=== PATIENT | male | born 1955 | race Caucasian/White ===

== ENCOUNTER 2017-01-15 09:31 | Inpatient (IN) | payer OTHER ==
[~2017-01-15] VITALS: Ht 190.5 cm; Wt 102.5 kg
[2017-01-15] VITALS (15 sets, daily range): BP systolic 107–150; BP diastolic 70–91
[~2017-01-15 09:31] MED LIST: LEVOTHYROXIN0.175 MG PO
[2017-01-15] MEDS ORDERED: LANSOPRAZOLE15 MG PO (11:10)
[2017-01-15 11:40] LABS: HEMOGLOBIN 15.3 g/dL (14.1-18.0); LYMPH # 1.5 K/mm3 (0.7-4.5); LYMPH % 17.6 % (10-50)
--- NOTE | 2017-01-15 12:28 | CONSULT NOTE ---
Consultation findings: Referring physician: Dr. Abbott Date of examination: 01/15/17 Time of examination: 1200 Exam findings: 61 yo male known to me from TKA in 2011 R knee. Presents with several day hx pustules both LE. States he believes he scratched skin to aggressively when itching. Has been on p.o. Abx with no improvement. No other lesions except legs. Denies knee pain. Alert and oriented. Multiple areas of cellulitis and induration/fluctuance both legs. Moves knees w/o pain. No evident knee joint erffussion either side. Compartments soft. pedal pulses and sensation intact B LE. Impression: cellulitis both lower extremities with purulent discharge per history Recommendations: I&D and aggressive Abx management to protect TKA on right. at [phone]
--- NOTE | 2017-01-15 14:15 | HISTORY AND PHYSICAL REPORT ---
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 He was seen in the office 01/11/17 with cellulitis of the LLE and started on Bactrim. The rash intensified and he again visited the office for further TX. With this evaluation he was found to have multiple areas of cellulitis and induration on both legs. Thus he was admitted with an Orthopedic referral. Dr. Lee saw him and noted no evident knee joint erffussion on either side. Compartments soft. pedal pulses and sensation intact B LE with recommendation for I&D and aggressive Abx management to protect TKA on right. At time of this exam patient is getting ready to go to surgery. Past Medical History: Medical History: CAD? No Angina: No [place]: No Hypertension? No Hyperlipidemia? No CHF? No DVT? No PE? No COPD? No Asthma? No Anemia? No GERD? No Gastric ulcers? No GI Bleed? No Hernia? No Thyroid Problems? Yes Hypothyroidism? Yes CVA? No Seizures? No Diabetes? No Renal Insuffiency? No UTI? No Stones? No BPH? No GB Disease: No Nephritic Syndrome? No Asplenia? No Hepatitis? No Sickle Cell Disease? No Arthritis? No Migraines? No Cataracts? Yes Glaucoma? No MRSA? No HIV? No TB? No Anxiety? No Depression? No Cancer? Yes Site: [facility] More? No Surgical history: Previous Surgery?Y THYROID X 2 Cataract(s) LASIK X 2 RIGHT KNEE REPLACED Medications: Reported Medications Lansoprazole 20 MG PO PRN PRN ACID REFLUX Levothyroxine Sodium (Levothyroxine 0.175MG) 0.175 MG PO DAILY Allergies: Coded Allergies: No Known Allergies (01/15/17) Family History: Family history: Postive for: HTN, cancer. Negative for: CAD, DM. Social History: Smoking Hx Tobacco: No Alcohol: Alcohol: No Hx of Drug Use: Drug Use? No Patien't marital status is: Patient's support system is: excellent Review of Systems: Constitutional No: fatigue. ENT No: ear ache, sore throat. Cardiovascular Positive for: edema. No: PND, chest pain, palpitations. Respiratory No: shortness of air, non-productive, productive cough (sputum). GI No: GERD, abdominal pain, constipation, diarrhea, melena, nausea. (male) No: frequency, hematuria. Neurological No: dizziness, headache, seizure, syncope. Musculoskeletal Positive for: extremity pain (bilateral leg pain). Physical Exam: Vital signs: 1ST Vital Signs Result Date Time Pulse Ox 99 01/15 104 O2 Delivery ROOM AIR 01/15 1041 B/P 150/82 01/15 104 Temp 98.3 01/15 104 Pulse 71 01/15 104 Resp 20 01/15 104 Exam: General appearance: alert, no acute distress, well-developed, well-nourished Eyes: anicteric ENT: mucous membranes moist Neck: full range of motion, supple, lymphadenopathy (absent) Extremities: bilateral legs with multiple indurated areas with celluitis Lab data: Labs: Laboratory Tests 01/15/171127: Sodium 139, Potassium 4.2, Chloride 104, Carbon Dioxide 26, BUN 16, Creatinine 1.1, Estimated Creat Clear 105, Estimated GFR (MDRD) 69, Glucose 93, Calcium 8.9 , Total Bilirubin 0.4, AST 20, ALT 65, Alkaline Phosphatase 95, Total Protein 6.9, Albumin 3.0 L, Globulin 3.9 H, Albumin/Globulin Ratio 0.8 L, WBC 8.5, RBC 5.16, Hgb 15.3, Hct 45.9, MCV 89.1, RDW 13.1, Plt Count 189, MPV 6.6 L, Gran % 72.9, Gran # 6.2, Lymphocytes % 17.6, Monocytes % 6.1, Eosinophils % 3.1, Basophils % 0.3, Lymphocytes # 1.5, Monocytes # 0.5, Eosinophils # 0.3, Basophils # 0.0, PUBS MCHC 33.3, MCH 29.7 Microbiology 01/15 1212 BLOOD: Anaerobic Blood Culture - RECD 01/15 1212 BLOOD: Aerobic Blood Culture - RECD 01/15 1128 LEG: Wound Culture - RECD 01/15 1128 BLOOD: Anaerobic Blood Culture - RECD 01/15 1128 BLOOD: Aerobic Blood Culture - RECD Diagnosis(es): 1. Cellulitis and abscess of lower extremity Status: Acute Assessment/Plan bilateral legs 2. History of malignant neoplasm of thyroid Status: Chronic Plan: to surgery for I&D; IV ABX (Marycruz Kaminski APRN) Date of admission: 01/15/17 Chief complaint: Cellulitis and abscess Past Medical History: Medical History: Thyroid Problems? No (post surgical) Cancer? Yes Site: thyroid Additional hx: Follicular thyroid carcinoma Surgical history: Previous Surgery?Y Total thyroidectomy Cataract(s) LASIK X 2 RIGHT KNEE REPLACED Family History: Additional family history: Mother with valvular heart disease and father with dementia Physical Exam: Exam: Skin: large area of abscess on left lateral lowerlegs with scant drainage. Multiple pustular lesions scattered on both legs. Diagnosis(es): 1. Cellulitis and abscess of lower extremity Status: Acute 2. History of malignant neoplasm of thyroid Status: Chronic Plan: Admit for IV Vancomycin and surgical consultation for I&D. (Amanda Abbott MD) at 1414 at [phone]
--- NOTE | 2017-01-15 15:08 | CONSULT NOTE ---
Pharmacokinetic Consult Date of consult: 01/15/17 Time of consult: 1506 Referring provider: DR. PEREZ Reason for consult: VANCOMYCIN DOSING Allergies: Coded Allergies: No Known Allergies (01/15/17) Home Medications: Reported Medications Lansoprazole 20 MG PO PRN PRN ACID REFLUX Levothyroxine Sodium (Levothyroxine 0.175MG) 0.175 MG PO DAILY Height (feet): 6 Height (inches): 3.00 Medical History: CAD? No Angina: No [place]: No Hypertension? No Hyperlipidemia? No CHF? No DVT? No PE? No COPD? No Asthma? No Anemia? No GERD? No Gastric ulcers? No GI Bleed? No Hernia? No Thyroid Problems? Yes Hypothyroidism? Yes CVA? No Seizures? No Diabetes? No Renal Insuffiency? No UTI? No Stones? No BPH? No GB Disease: No Nephritic Syndrome? No Asplenia? No Hepatitis? No Sickle Cell Disease? No Arthritis? No Migraines? No Cataracts? Yes Glaucoma? No MRSA? No HIV? No TB? No Anxiety? No Depression? No Cancer? Yes Site: [facility]? No Labs: Laboratory Tests 01/15/171127: Sodium 139, Potassium 4.2, Chloride 104, Carbon Dioxide 26, BUN 16, Creatinine 1.1, Estimated Creat Clear 105, Estimated GFR (MDRD) 69, Glucose 93, Calcium 8.9 , Total Bilirubin 0.4, AST 20, ALT 65, Alkaline Phosphatase 95, Total Protein 6.9, Albumin 3.0 L, Globulin 3.9 H, Albumin/Globulin Ratio 0.8 L, WBC 8.5, RBC 5.16, Hgb 15.3, Hct 45.9, MCV 89.1, RDW 13.1, Plt Count 189, MPV 6.6 L, Gran % 72.9, Gran # 6.2, Lymphocytes % 17.6, Monocytes % 6.1, Eosinophils % 3.1, Basophils % 0.3, Lymphocytes # 1.5, Monocytes # 0.5, Eosinophils # 0.3, Basophils # 0.0, PUBS MCHC 33.3, MCH 29.7 Microbiology 01/15 1212 BLOOD: Anaerobic Blood Culture - RECD 01/15 1212 BLOOD: Aerobic Blood Culture - RECD 01/15 1128 LEG: Wound Culture - RECD 02/27 1128 BLOOD: Anaerobic Blood Culture - RECD 01/15 1128 BLOOD: Aerobic Blood Culture - RECD Problem List: 1. Cellulitis and abscess of lower extremity Acute Plan: BASED ON PATIENT FACTORS, RECOMMEND STARTING WITH VANCOMYCIN 2000 MG Q12H AT THIS TIME. PHARMACY WILL FOLLOW DAILY AND ADJUST APPROPRIATE. DANIELLA LINDA, PHARMD at [phone]
[2017-01-16] VITALS (8 sets, daily range): BP systolic 116–146; BP diastolic 62–74
--- NOTE | 2017-01-16 07:39 | PHARMACY CLINIC NOTE ---
Patient Demographics Patient Demographics Admission date: 01/15/17 Date: 01/16/17 Time: 0737 Allergies Coded Allergies: No Known Allergies (01/15/17) HEIGHT- FT: 6 IN: 3.00 K.513 VTE General Information Labs: Laboratory Tests 01/15 1128 Hematology Hgb (14.1 - 18.0 g/dL) 15.3 Hct (42.0 - 52.0 %) 45.9 Plt Count (142 - 424 K/mm3) 189 Disclaimer The following section includes nursing documentation that has been pulled in for pharmacy review. Patient's VTE score: 1 Patient's VTE Risk: VERY LOW RISK Clinical trial participant? No VTE prophylaxis [facility] 0371 VTE prophylaxis ordered? Yes Type of prophylaxis/treatment: Lovenox at 0738
--- NOTE | 2017-01-16 07:39 | PHARMACY CLINIC NOTE ---
Patient Demographics Patient Demographics Admission date: 01/15/17 Date: 01/16/17 Time: 0737 Allergies Coded Allergies: No Known Allergies (01/15/17) HEIGHT- FT: 6 IN: 3.00 K.513 VTE General Information Labs: Laboratory Tests 01/15 1128 Hematology Hgb (14.1 - 18.0 g/dL) 15.3 Hct (42.0 - 52.0 %) 45.9 Plt Count (142 - 424 K/mm3) 189 Disclaimer The following section includes nursing documentation that has been pulled in for pharmacy review. Patient's VTE score: 1 Patient's VTE Risk: VERY LOW RISK Clinical trial participant? No VTE prophylaxis [facility] 0371 VTE prophylaxis ordered? Yes Type of prophylaxis/treatment: Lovenox at 0738
--- NOTE | 2017-01-16 08:27 | ACUTE CARE PROGRESS NOTE (QUA) ---
Progress Notes Subjective Date 01/16/17 Time 0740 Note slept at intervals; legs burn but did not ask for any pain med. eating without problems; voiding QS Objective Findings Laboratory Tests 01/15/17 1128: Sodium 139, Potassium 4.2, Chloride 104, Carbon Dioxide 26, BUN 16, Creatinine 1.1, Estimated Creat Clear 105, Estimated GFR (MDRD) 69, Glucose 93, Calcium 8.9 , Total Bilirubin 0.4, AST 20, ALT 65, Alkaline Phosphatase 95, Total Protein 6.9, Albumin 3.0 L, Globulin 3.9 H, Albumin/Globulin Ratio 0.8 L, WBC 8.5, RBC 5.16, Hgb 15.3, Hct 45.9, MCV 89.1, RDW 13.1, Plt Count 189, MPV 6.6 L, Gran % 72.9, Gran # 6.2, Lymphocytes % 17.6, Monocytes % 6.1, Eosinophils % 3.1, Basophils % 0.3, Lymphocytes # 1.5, Monocytes # 0.5, Eosinophils # 0.3, Basophils # 0.0, PUBS MCHC 33.3, MCH 29.7 Microbiology 01/15 1440 LEG: Antimicrobic Susceptibility - RECD 01/15 1440 LEG: Anaerobic Culture Result 4 - RECD 01/15 1440 LEG: Anaerobic Culture Result 3 - RECD 01/15 1440 LEG: Anaerobic Culture Result 2 - RECD 01/15 1440 LEG: Anaerobic Culture Result 1 - RECD 01/15 1440 LEG: Anaerobic Culture - RECD 01/15 1440 LEG: Wound Culture - RECD 01/15 1440 WOUND: Wound Culture - RECD 01/15 1440 LEG: Antimicrobic Susceptibility - RECD 01/15 1440 LEG: Anaerobic Culture Result 4 - RECD 01/15 1440 LEG: Anaerobic Culture Result 3 - RECD 01/15 1440 LEG: Anaerobic Culture Result 2 - RECD 01/15 1440 LEG: Anaerobic Culture Result 1 - RECD 01/15 1440 LEG: Anaerobic Culture - RECD 01/15 1212 BLOOD: Anaerobic Blood Culture - RECD 01/15 1212 BLOOD: Aerobic Blood Culture - RECD 01/15 1128 LEG: Wound Culture - RECD 01/15 1128 BLOOD: Anaerobic Blood Culture - RECD 01/15 1128 BLOOD: Aerobic Blood Culture - RECD Vital Signs Date Time Temp Pulse Resp B/P Pulse O2 O2 Flow FiO2 Ox Delivery Rate 01/16 0747 97.4 81 18 146/74 98 ROOM AIR 01/16 0347 98.8 65 16 116/62 97 ROOM AIR 01/16 0018 99.5 69 16 134/68 95 ROOM AIR 01/15 2225 98.7 65 20 107/70 96 01/15 2125 98.7 67 20 110/72 95 01/15 2025 98.7 65 20 124/78 97 01/15 2000 98.3 68 20 147/83 97 01/15 1925 98.7 70 20 135/78 97 01/15 1844 98.3 68 20 147/83 97 01/15 1755 98.3 78 20 131/88 96 01/15 1725 98.3 68 20 137/80 97 01/15 1655 98.3 65 20 122/72 96 01/15 1625 98.0 65 20 136/87 97 01/15 1610 97.8 63 20 132/79 96 01/15 1555 97.6 66 20 146/91 98 01/15 1540 97.8 67 20 137/91 99 01/15 1540 97.8 67 20 137/91 99 01/15 1538 97.8 73 18 140/83 97 ROOM AIR 01/15 1528 71 18 144/95 97 ROOM AIR 01/15 1522 97.6 01/15 1518 72 18 137/66 98 ROOM AIR 01/15 1513 71 20 150/82 99 01/15 1508 97.6 75 16 153/92 96 ROOM AIR 01/15 1051 98.3 71 20 150/82 99 ROOM AIR 01/15 1041 71 01/15 1041 98.3 71 20 150/82 01/15 1041 99 ROOM AIR Current Medications Sodium Chloride 1,000 ML .Q25H IV Enoxaparin Sodium 40 MG DAILY SC Levothyroxine Sodium 0.175 MG DAILY PO (UNV) Vancomycin HCl 2,000 MG Q12H IV (CKD) Sodium Chloride 250 ML Desflurane 0 .STK-MED ONE .ROUTE (DC) Acetaminophen 650 MG Q4HP PRN PO Acetaminophen/Hydrocodone Bitart 1 TAB Q6HP PRN PO Influenza Virus Vaccine Quadrival 0.5 ML PRN PRN IM Nicotine 21 MG DAILYP PRN TD Sodium Chloride 10 ML PRN PRN IV Cefazolin Sodium 0 .STK-MED ONE .ROUTE (DC) Lidocaine HCl 0 .STK-MED ONE IJ (DC) Ondansetron HCl 0 .STK-MED ONE .ROUTE (DC) Propofol 0 .STK-MED ONE IV (DC) Fentanyl Citrate 0 .STK-MED ONE IV (DC) Midazolam HCl 0 .STK-MED ONE .ROUTE (DC) Lactated Ringer's 1,000 ML .STK-MED ONE IV (DC) Sodium Chloride 1,000 ML .STK-MED ONE IV (DC) Sodium Chloride 10 ML PRN PRN IV (DC) Acetaminophen 650 MG Q4HP PRN PO (DC) Acetaminophen/Hydrocodone Bitart 1 TAB Q6HP PRN PO (DC) Influenza Virus Vaccine Quadrival 0.5 ML PRN PRN IM (DC) Nicotine 21 MG DAILYP PRN TD (DC) Sodium Chloride 1,000 ML .Q25H IV Enoxaparin Sodium 40 MG DAILY SC (DC) 01/15 1500 01/15 2300 01/16 0700 Intake Total 1022 465 Output Total 0 Balance 1022 465 Intake, IV 432 465 Intake, Oral 590 Intake, Tube 0 Irrigant Output, 0 Emesis Output, 0 Estimated Blood Loss Output, Other 0 Output, Urine 0 Patient 226 lb Weight Last VS-Temp:97.4 B/P:146/74 Pulse:81 Resp:18 SaO2:98 ROOM AIR Last weight lbs:226 oz:0 K.513 Method:Floor Scales Exam General appearance: alert, active, no acute distress, well-developed, well- nourished Cardiovascular: regular rate & rhythm Respiratory: clear to auscultation (bilat anterior and posterior) ABD: soft, no tenderness, bowel sounds present Extremities: edema of left ankle; dressings on left lower leg and 2 dressings on right leg Neuro: alert, oriented Assessment/Plan Problem List 1. Cellulitis and abscess of lower extremity Status: Acute 2. History of malignant neoplasm of thyroid Status: Chronic Patient condition Improving Plan: As per Dr. Lee; continue with ABX, dressings as per Dr. Lee This inpt stay is expected to cross 2 MNs from start of care Yes (Marycruz Kaminski APRN) Subjective Date 01/16/17 Time 0836 Assessment/Plan Problem List 1. Cellulitis and abscess of lower extremity Status: Acute 2. History of malignant neoplasm of thyroid Status: Chronic Plan: Pt seen and examined. Concur with above. Awaiting cultures. (Amanda Abbott MD) at [phone] at 0847
--- NOTE | 2017-01-16 11:53 | ACUTE CARE PROGRESS NOTE ---
Progress note Date: 01/16/17 Assessment: Patient is postop day number 1 status post I and D of multiple abscess formations bilateral lower extremities. He is afebrile and vital signs are stable. White count 8500. Interestingly, the patient's albumin is low at 3.0. Cultures and sensitivities are pending Patient is awake and alert no apparent distress. Clinically some of the lesions which were smaller and not fluctuant appeared to have improved somewhat since initiation of vancomycin. Patient is sensate to light touch bilaterally pedal pulses intact. Moves knees freely without pain. No evident effusion and no evident periprosthetic infection of the RIGHT knee Impression: 1. Cellulitis and abscess of lower extremity Status: Acute 2. History of malignant neoplasm of thyroid Status: Chronic Plan: Recommend continuing vancomycin pending cultures and sensitivities. We will request nursing staff change dressings today. The patient is at high risk for seeding of the RIGHT knee and developing a periprosthetic joint infection. We'll obtain a C-reactive protein and ESR to establish a baseline and help track response to antibiotics. at 1158
--- NOTE | 2017-01-16 16:15 | CONSULT NOTE ---
Pharmacokinetic Consult Date of consult: 01/16/17 Time of consult: 1612 Referring provider: DR. PEREZ Reason for consult: VANCOMYCIN TROUGH LEVEL Allergies: Coded Allergies: No Known Allergies (01/15/17) Home Medications: Reported Medications Lansoprazole 20 MG PO PRN PRN ACID REFLUX Levothyroxine Sodium (Levothyroxine 0.175MG) 0.175 MG PO DAILY Height (feet): 6 Height (inches): 3.00 Medical History: CAD? No Angina: No [place]: No Hypertension? No Hyperlipidemia? No CHF? No DVT? No PE? No COPD? No Asthma? No Anemia? No GERD? No Gastric ulcers? No GI Bleed? No Hernia? No Thyroid Problems? No (post surgical) Hypothyroidism? Yes CVA? No Seizures? No Diabetes? No Renal Insuffiency? No UTI? No Stones? No BPH? No GB Disease: No Nephritic Syndrome? No Asplenia? No Hepatitis? No Sickle Cell Disease? No Arthritis? No Migraines? No Cataracts? Yes Glaucoma? No MRSA? No HIV? No TB? No Anxiety? No Depression? No Cancer? Yes Site: thyroid More? No Additional hx: Follicular thyroid carcinoma Labs: Laboratory Tests 01/16/17 1440: Creatinine 1.2, Estimated Creat Clear 96, Estimated GFR (MDRD) 62, ESR 80 H, Vancomycin Trough 10.0 Problem List: 1. Cellulitis and abscess of lower extremity Acute Plan: BASED ON PATIENT VANCOMYCIN TROUGH LEVEL OF 10.0 MCG/ML, RECOMMENDED PATIENT CONTINUE WITH CURRENT DOSE OF VANCOMYCIN 2 GM Q12H AT THIS TIME. PHARMACY WILL FOLLOW DAILY AND ADJUST APPROPRIATE. DANIELLA LINDA, PHARMD at [phone]
[2017-01-17 03:50] VITALS: BP 117/76
[2017-01-17 07:53] VITALS: BP 128/72
--- NOTE | 2017-01-17 08:15 | ACUTE CARE PROGRESS NOTE (QUA) ---
Progress Notes Subjective Date 01/17/17 Time 0750 Note Slept much better last night; pain in legs with dressing changes; eating without problems; denies CP and SOB; ambulates to the bathroom; dressing changed this AM ; drains are out Objective Findings Laboratory Tests 01/16/17 1440: Creatinine 1.2, Estimated Creat Clear 96, Estimated GFR (MDRD) 62, ESR 80 H, Vancomycin Trough 10.0 Vital Signs Date Time Temp Pulse Resp B/P Pulse O2 O2 Flow FiO2 Ox Delivery Rate 01/17 075 98.1 72 20 128/72 98 ROOM AIR 01/17 0350 98.3 61 16 117/76 95 ROOM AIR 01/16 2140 98.1 67 18 143/72 98 01/16 2013 98.1 67 18 143/72 98 ROOM AIR 01/16 1542 98.3 64 18 128/72 97 ROOM AIR 01/16 1453 18 01/16 1144 97.6 69 18 134/71 98 ROOM AIR Current Medications Acetaminophen/Hydrocodone Bitart 0 .STK-MED ONE PO (DC) Sodium Chloride 1,000 ML .Q25H IV Enoxaparin Sodium 40 MG DAILY SC Levothyroxine Sodium 0.175 MG DAILY PO Vancomycin HCl 2,000 MG Q12H IV (CKD) Sodium Chloride 250 ML Acetaminophen 650 MG Q4HP PRN PO Acetaminophen/Hydrocodone Bitart 1 TAB Q6HP PRN PO Influenza Virus Vaccine Quadrival 0.5 ML PRN PRN IM Nicotine 21 MG DAILYP PRN TD Sodium Chloride 10 ML PRN PRN IV Sodium Chloride 1,000 ML .Q25H IV (DC) 01/16 1500 01/16 2300 01/17 0700 Intake Total 600 692 Output Total Balance 600 692 Intake, IV 272 Intake, Oral 600 420 Last VS-Temp:98.1 B/P:128/72 Pulse:72 Resp:20 SaO2:98 ROOM AIR Last weight lbs:226 oz:0 K.513 Method:Floor Scales Exam General appearance: alert, active, no acute distress, well-developed, well- nourished Cardiovascular: regular rate & rhythm Respiratory: clear to auscultation (bilat anterior and posterior) ABD: non-distended, soft, no tenderness, bowel sounds present Extremities: left leg with edema; dressings on right and left leg are clean and dry Neuro: alert, oriented Assessment/Plan Problem List 1. Cellulitis and abscess of lower extremity Status: Acute 2. History of malignant neoplasm of thyroid Status: Chronic Patient condition Improving Plan: continue current care, as per Dr. Lee This inpt stay is expected to cross 2 MNs from start of care Yes (Marycruz Kaminski APRN) Subjective Date 01/17/17 Time 0926 Assessment/Plan Problem List 1. Cellulitis and abscess of lower extremity Status: Acute 2. History of malignant neoplasm of thyroid Status: Chronic Plan: As above. Awaiting cultures. (Amanda Abbott MD) at 0814 at 0926
[2017-01-17 09:00] VITALS: BP 128/72
[2017-01-17 15:47] VITALS: BP 128/88
[2017-01-17 19:30] VITALS: BP 128/65
[2017-01-17 19:44] VITALS: BP 128/65
[2017-01-18 04:00] VITALS: BP 135/73
--- NOTE | 2017-01-18 08:11 | ACUTE CARE PROGRESS NOTE (QUA) ---
Progress Notes Subjective Date 01/18/17 Time 0807 Note Patient states he is feeling better today. He did eat most of his breakfast and slept well last night. His pain is improved. Dr. Hodges is following and changed his dressing yesterday. Objective Findings Last VS-Temp:98.0 B/P:135/73 Pulse:59 Resp:20 SaO2:98 ROOM AIR Last weight lbs:226 oz:0 K.513 Method:Floor Scales Exam General appearance: alert, awake, no acute distress Cardiovascular: regular rate & rhythm Respiratory: clear to auscultation ABD: non-distended, normal bowel sounds, no rebound, soft, no tenderness, no guarding Extremities: dressings in place on bilateral legs with no drainage Reviewed: Wound cx - MRSA positive Assessment/Plan Problem List 1. Cellulitis and abscess of lower extremity Status: Acute 2. History of malignant neoplasm of thyroid Status: Chronic Plan: Dr. Lee to follow. Will continue IV abx. This inpt stay is expected to cross 2 MNs from start of care Yes (Katina Rodriguez) Subjective Date 01/18/17 Time 0819 Assessment/Plan Problem List 1. Cellulitis and abscess of lower extremity Status: Acute 2. History of malignant neoplasm of thyroid Status: Chronic Plan: No new problems. Surgical cultures still pending. (Amanda Abbott MD) Antibiotic Stewardship (2) Current Culture Results Microbiology 01/15 1440 LEG: Antimicrobic Susceptibility - RECD 01/15 1440 LEG: Anaerobic Culture Result 4 - RECD 01/15 1440 LEG: Anaerobic Culture Result 3 - RECD 01/15 1440 LEG: Anaerobic Culture Result 2 - RECD 01/15 1440 LEG: Anaerobic Culture Result 1 - RECD 01/15 1440 LEG: Anaerobic Culture - RECD 01/15 1440 LEG: Wound Culture - COMP STAPHYLOCOCCUS AUREUS 01/15 1440 WOUND: Wound Culture - COMP STAPHYLOCOCCUS AUREUS 01/15 1212 BLOOD: Anaerobic Blood Culture - RECD 01/15 1212 BLOOD: Aerobic Blood Culture - RECD Infxn that will respond? Yes Right drug,dose,and route? Yes More targeted antbx? No How long atbx needed? 10 (Amanda Abbott MD) at 0810 at 0820
[2017-01-18 08:13] VITALS: BP 133/73
--- NOTE | 2017-01-18 13:23 | ACUTE CARE PROGRESS NOTE ---
See Addendum Progress note Date: 01/18/17 Assessment: Is awake, alert, no apparent distress. He remains afebrile and vital signs are stable. C reactive protein 7.5 ESR 80. Cultures and sensitivities from surgical debridement indicate sensitivity to vancomycin and rifampin. Dressings are changed. All sites show improvement. The more proximal one on the lateral aspect of the LEFT lower leg still shows significant induration but I do not feel true fluctuance here. No evidence of joint effusion and there does not appear to be clinical evidence of a periprosthetic joint infection on the RIGHT knee at the site of his prior TKA. Impression: 1. Cellulitis and abscess of lower extremity Status: Acute 2. History of malignant neoplasm of thyroid Status: Chronic Plan: I've emailed Dr. Fam Monae at the [facility] Department of infectious disease regarding some questions related to duration of antibiotic therapy and possible changed to daptomycin while at the same time providing optimal protection for his total knee replacement. In the meantime, RIGHT rifampin 600 mg daily is added for synergistic effect. I've spoken with Ms. Mendez regarding taps to decolonize her home and we will put her in touch with our infection control folks to assist her in this matter. Antibiotic Stewardship (2) Infxn that will respond? Yes Right drug,dose,and route? Yes More targeted antbx? No at 8530
--- NOTE | 2017-01-18 15:04 | CONSULT NOTE ---
Pharmacokinetic Consult Date of consult: 01/18/17 Time of consult: 1502 Referring provider: DR. PEREZ Reason for consult: VANCOMCYIN TROUGH LEVEL Allergies: Coded Allergies: No Known Allergies (01/15/17) Home Medications: Reported Medications Lansoprazole 20 MG PO PRN PRN ACID REFLUX Levothyroxine Sodium (Levothyroxine 0.175MG) 0.175 MG PO DAILY Height (feet): 6 Height (inches): 3.00 Medical History: CAD? No Angina: No [place]: No Hypertension? No Hyperlipidemia? No CHF? No DVT? No PE? No COPD? No Asthma? No Anemia? No GERD? No Gastric ulcers? No GI Bleed? No Hernia? No Thyroid Problems? No (post surgical) Hypothyroidism? Yes CVA? No Seizures? No Diabetes? No Renal Insuffiency? No UTI? No Stones? No BPH? No GB Disease: No Nephritic Syndrome? No Asplenia? No Hepatitis? No Sickle Cell Disease? No Arthritis? No Migraines? No Cataracts? Yes Glaucoma? No MRSA? No HIV? No TB? No Anxiety? No Depression? No Cancer? Yes Site: thyroid More? No Additional hx: Follicular thyroid carcinoma Labs: Laboratory Tests 01/18/17 1430: Vancomycin Trough 13.6 H Problem List: 1. Cellulitis and abscess of lower extremity Acute Plan: BASED ON VANCOMYCIN TROUGH LEVEL, RECOMMEND CONTINUING VANCOMYCIN [address] PEREZ IS GOING TO DISCONTINUE VANCOMYCIN AND START ZYVOX. at 1500
[2017-01-18 19:30] VITALS: BP 123/73
[2017-01-18 19:56] VITALS: BP 123/73
[2017-01-19 04:12] VITALS: BP 143/74
[2017-01-19 08:00] VITALS: BP 135/70
--- NOTE | 2017-01-19 08:19 | ACUTE CARE PROGRESS NOTE (QUA) ---
Progress Notes Subjective Date 01/19/17 Time 0816 Note Patient feeling better this morning. Denies any pain other than along the incision sites in his legs. Still has a drain present in the LEFT lower leg. Slept well and a most of his breakfast. Objective Findings Last VS-Temp:98.1 B/P:143/74 Pulse:62 Resp:20 SaO2:96 ROOM AIR Last weight lbs:226 oz:0 K.513 Method:Floor Scales Laboratory Tests 01/18/17 1430: Vancomycin Trough 13.6 H Exam General appearance: alert, awake, no acute distress Cardiovascular: regular rate & rhythm Respiratory: clear to auscultation ABD: non-distended, normal bowel sounds, no rebound, soft, no tenderness, no guarding Extremities: no peripheral edema Skin: There are dressings on both legs and a drain in place on the LEFT lower leg. Assessment/Plan Problem List 1. MRSA infection Status: Acute 2. Cellulitis and abscess of lower extremity Status: Acute 3. History of malignant neoplasm of thyroid Status: Chronic Plan: Patient stable to be discharged home today on Zyvox. Will have to contact Dr. Hodges about dressing changes and drain removal. This inpt stay is expected to cross 2 MNs from start of care No (Katina Rodriguez) Subjective Date 01/19/17 Assessment/Plan Problem List 1. MRSA infection Status: Acute 2. Cellulitis and abscess of lower extremity Status: Acute 3. History of malignant neoplasm of thyroid Status: Chronic Plan: Pt seen and examined this AM. Concur with plan for discharge. This inpt stay is expected to cross 2 MNs from start of care Yes (Amanda Abbott MD) Antibiotic Stewardship (2) Infxn that will respond? Yes Right drug,dose,and route? Yes More targeted antbx? No (Katina Rodriguez) at 0818 at 1219
[2017-01-19] MEDS ORDERED: ZYVOX600 MG PO (09:03)
[2017-01-19 10:22] VITALS: BP 135/70
--- NOTE | 2017-01-25 14:05 | DISCHARGE SUMMARY STANDARD ---
Discharge Summary ([facility]) Date of admission: 01/15/17 Date of discharge: 01/19/17 Problem List: 1. MRSA infection 2. Cellulitis and abscess of lower extremity 3. History of malignant neoplasm of thyroid History of present illness: Mr Mendez is a 61 year old male with a history of follicular thyroid cancer and post surgical hypothyroidism who presented to the office of [facility] with worsening cellulitis. He was seen in the office on 01/11/17 with cellulitis of the LLE and was started on Bactrim. The rash intensified and he again visited the office for further [place]. With this evaluation, he was found to have multiple areas of cellulitis and induration on both legs, thus he was admitted with an Orthopedic referral. Exam on admission: General appearance: alert, no acute distress, well-developed, well-nourished Eyes: anicteric ENT: mucous membranes moist Neck: full range of motion, supple, lymphadenopathy (absent) Extremities: bilateral legs with multiple indurated areas with celluitis Hospital Course: Dr. Lee saw him and noted no evidence of knee joint effusion on either side. Compartments were soft. His pedal pulses and sensation were intact in bilateral LE. He recommended I&D and aggressive Abx management to protect TKA on right. He was started on IV vancomycin and was taken to surgery. He tolerated the procedure well and Dr. Hodges recommended continuing vancomycin as cultures were pending. He had dressing changes by the nursing staff as per Dr. Hodges's recommendations. He also ordered a C-reactive protein and ESR to establish a baseline to help track his response to antibiotics. His wound cultures came back positive for MRSA. He did have improvement on the vancomycin. Dr. Hodges spoke with infectious disease at regarding some questions related to the duration of his antibiotic therapy. Dr. Monae recommended Zyvox 600 mg by mouth twice a day 14 days. Care management was able to get this for the patient and he was stable to be discharged home on 01/19/17. He will need to follow[facility]up in [facility] as well as with Dr. Hodges. Discharge medications: Continue taking these medications: Levothyroxine Sodium (Levothyroxine 0.175MG) 175 MCG TABLET 0.175 MILLIGRAM ORAL DAILY Lansoprazole (Lansoprazole) 15 MG CAPSULE. 20 MILLIGRAM ORAL As Needed as needed for ACID REFLUX Start taking the following new medications: Linezolid (Zyvox TABLET) 600 MG TABLET 600 MILLIGRAM ORAL TWICE A DAY Qty = 30 No Refills Disposition: F/u with: Robert Lee MD Follow up: 3 DAYS Activity: Cont Current activity Diet: Regular Discharge to: HOME Agency needed? N at [id number]
--- NOTE | 2017-01-31 11:57 | Operative Note ---
Procedure/Operative Record Date of Procedure: 01/15/17 Referring physician: Dr. Abbott Pre-op diagnosis: Bilateral lower extremity cellulitis and abscess formation Post-op diagnosis: Same Procedure performed: Bilateral lower extremity incision and debridement of multiple abscesses 3 RIGHT lower extremity and 5 LEFT lower extremity Surgeon: Robert Lee Anesthesia: General anesthetic Indications: The patient is a 61-year-old male who reports greater then 1 week of cellulitis pain swelling and most recently drainage from multiple sites of infection of his lower extremities. He reports that he was in his usual state of good health until he began experiencing intense itching which led to scratching aggressively. He believes this resulted in localized infection in the lower extremities. He was initially treated with Bactrim orally however apparently failed to respond adequately to this. He saw his family physician today and was admitted to the [facility]. Of particular concern is that the patient has a total knee arthroplasty in place on his RIGHT knee. Incision and debridement of multiple lesions are indicated to help resolve this infection. Findings: Intraoperative findings agreed with preoperative assessment. There were multiple erythematous areas of cellulitis present bilaterally. Induration was present in all. Fluctuance was present and 3 lesions on the RIGHT and 5 lesions on the LEFT leg. Purulent fluid from these abscesses were collected and submitted for culture and sensitivity Description of procedure: The patient was taken to the operating room and a general anesthetic administered. The lower extremities were wrapped and draped in the usual sterile fashion and both extremities draped independently. A tourniquet was not utilized. The RIGHT lower extremity was addressed first. 3 purulent abscesses were identified. The largest was approximately on the lateral thigh. This was incised with a number 15 blade through the skin and the subcutaneous tissue. Bluntly dissected down to the fascia. Purulent material was expressed and approximately 10 mL removed. This was submitted for culture and sensitivity and we irrigated the pocket out. A curet was used to remove necrotic tissue. Approximately 10 mL of possible and another 5 mL of necrotic fat and soft tissue was removed. Length of the incision was approximately 3 cm. After thorough irrigation, the remaining 2 smaller abscesses were treated in a similar fashion however cultures were not sent from these. These incisions were approximately 2 cm in length and approximately 2 mL all necrotic fat and soft tissue was removed with sharp dissection using a 15 blade and a curette. Depth of dissection and debridement was down to the fascia as well. Eugene drains were then placed and dressings applied and attention turned to the LEFT leg. Clean instrumentation was utilized here to avoid possible cross-contamination should different organisms be present. There were a total of 5 fluctuant abscesses on the LEFT which underwent incision and debridement. The largest was proximal on the lateral calf. A 5 cm incision was created here and necrotic skin , subcutaneous fat, and possible was removed. Approximately 10 mL of pus was removed. This was sampled and sent for culture and sensitivities. We then irrigated and drained another 4 abscesses on the LEFT leg using the same technique. All debride notch were carried out to the level of fascia and utilized a number 15 blade as well as a sharp curet. After irrigation, Karime drains were placed and dressings applied. The patient was then awakened and transported to the recovery room in satisfactory condition. EBL (ml): 10 Specimens: Culture and sensitivity 2 were taken from the LEFT leg and also from the RIGHT at [id number]
== END 2017-01-19 13:00 | disposition home or self-care (01) | DRG 603 ==
LOC: 2ND 09:31
PROVIDERS: Family Medicine; Orthopaedic Surgery
PROC: 0J9N00Z Drainage of Right Lower Leg Subcutaneous Tissue and Fascia with Drainage Device, Open Approach (ICD-10-PCS; principal; 2017-01-15 14:00)
PROC: 0J9M00Z Drainage of Left Upper Leg Subcutaneous Tissue and Fascia with Drainage Device, Open Approach (ICD-10-PCS; principal; 2017-01-15 14:00)
DX: L03.116 Cellulitis of left lower limb (principal); B95.62 Methicillin resistant Staphylococcus aureus infection as the cause of diseases classified elsewhere; L03.115 Cellulitis of right lower limb
CPT/HCPCS: J2020; J2405; J3370

== ENCOUNTER → 2017-08-01 | Outpatient (CLI) | payer OTHER ==
[~2017-08-01] MED LIST changes: +LANSOPRAZOLE15 MG PO; +ZYVOX600 MG PO
== END ==
LOC: LAB 22:00
DX: H60.02 Abscess of left external ear (principal)